=== PATIENT | male | born 1950 | race Caucasian/White ===

== ENCOUNTER → 2020-03-15 18:01 | Outpatient (CLI) | payer OTHER, SELFPAY ==
[2020-03-15 19:34] LABS: Basophils # 0.1 K/mm3 (0-0.2); Basophils % 0.7 % (0.1-2.0); Eosinophils # 0.3 K/mm3 (0.0-0.4); Eosinophils % 2.1 % (0.1-12.0); Hematocrit 42.7 % (42.0-52.0); Hemoglobin 15.4 g/dL (14.1-18.0); Lymphocytes # 3.5 K/mm3 (0.7-4.5); Mean Corpuscular HGB Conc 35.9 g/dL (31.8-35.4); Mean Corpuscular Hemoglobin 32.5 pg (27.0-31.2); Mean Corpuscular Volume 90.3 fl (80-94); Mean Platelet Volume 7.8 fl (7.4-10.4); Monocytes # 0.6 K/mm3 (0.1-1.0); Monocytes % 5.2 % (1.7-9.3); Neutrophils # 7.2 K/mm3 (1.8-7.8); Neutrophils % 61.9 % (37.0-80.0); Platelet Count 350 K/mm3 (142-424); Red Blood Count 4.73 M/mm3 (4.60-6.20); Red Cell Distribution Width 13.6 % (11.5-17.5); White Blood Count 11.6 K/mm3 (4.8-10.8)
[2020-03-15 20:28] LABS: Alanine Aminotransferase 21 U/L (12-78); Albumin Level 4.2 g/dl (3.5-5.0); Albumin/Globulin Ratio 1.5 (1.1-1.8); Alkaline Phosphatase 100 U/L (38-126); Anion Gap 13.4 mEq/L (5-15); Aspartate Amino Transferase 26 U/L (17-59); Bilirubin,Total 0.4 mg/dl (0.2-1.3); Blood Urea Nitrogen 20 mg/dl (9-20); Calcium 9.9 mg/dl (8.4-10.2); Carbon Dioxide 28 mmol/L (22.0-30.0); Chloride 102 mmol/L (98-107); Estimated Glomerular Filt Rate 67 ml/min (>60); GFR (African American) 81 ML/MIN (>60); Globulin 2.8 g/dL (1.3-3.2); Glucose 88 mg/dl (74-100); Potassium 4.4 mmoL/L (3.5-5.1); Sodium 139 mmol/L (136-145)
[2020-03-15 21:01] LABS: Prostate Specific Ag Screen 0.8 ng/ml (0.0-4.0); Thyroid Stimulating Hormone 1.17 uIU/mL (0.465-4.68)
[2020-03-15 21:18] LABS: Coronavirus 19 IgG Antibody Negative (Negative); Coronavirus 19 IgM Antibody Negative (Negative)
[2020-03-15 22:14] LABS: Hemoglobin A1C 5.4 % (4.0-6.0)
[2020-03-17 19:43] LABS: Vitamin B12 897 pg/mL (232-1245)
[2020-03-19 14:15] LABS: Testosterone, Total, LC/MS 322.1 ng/dL (264.0-916.0); Testosterone,Free 4.2 pg/mL (6.6-18.1)
== END ==
PROVIDERS: Visit Provider Family Medicine
DX: E11.9 Type 2 diabetes mellitus without complications (principal); E78.5 Hyperlipidemia, unspecified; I11.9 Hypertensive heart disease without heart failure
CPT/HCPCS: 80053; 82607; 83036; 84402; 84403; 84436; 84443; 85025; 86328; G0103

== ENCOUNTER → 2020-04-08 08:29 | Outpatient (CLI) | payer BC, SELFPAY ==
--- NOTE | 2020-04-08 08:42 | MR_ITS ---
PROCEDURE: MR LUMBAR SPINE WO CON CLINICAL INDICATION: lbp, numbness in bilat le LBP with sciatica down left leg. Hx lumbar surgery in 2001. COMPARISON: No exams were available for comparison TECHNIQUE: Standard multiplanar multiecho sequences are performed without contrast. 3-D MIP and myelographic images are also rendered and reviewed FINDINGS: There is normal alignment. The spinal cord ends at the T12-L1 level. Lumbar curvature convex left noted L1-L2: Mild facet and ligamentum hypertrophy with minimal bulging disc with mild bilateral foraminal narrowing. L2-L3: Mild facet ligamentum hypertrophy with mild bulging disc with mild bilateral foraminal narrowing L3-L4: Concentric bulging disc eccentric toward the right with facet and ligamentum hypertrophy with mild bilateral foraminal narrowing. Anterior osteophytes are present at this level. L4-5: Degenerative disc disease with bulging disc along with facet and ligamentum hypertrophy. There are bony hypertrophic changes at this level greater on the left with severe left lateral recess and foraminal narrowing and mild to moderate right foraminal narrowing. L5-S1: Degenerative disc disease with broad-based bulging disc with facet and ligamentum hypertrophy with mild right and severe left foraminal narrowing. IMPRESSION: 1. Abnormal MRI with multilevel degenerative changes and bulging disc along with facet and ligamentum hypertrophy with lateral recess and foraminal narrowing. Please see above for detailed description at each level. 2. Degenerative disc disease at L4-5 with bulging disc along with facet and ligamentum hypertrophy. There are bony hypertrophic changes at this level severe on the left with severe left lateral recess and foraminal narrowing and mild to moderate right foraminal narrowing Dictated by: Yuval Harden MD 04/09/2020 12:29 Yuval Harden MD in [place] 04/09/2020 12:29
--- NOTE | 2020-04-08 09:50 | XR_ITS ---
PROCEDURE: XR HIP RT 2-3V W/PELVIS CLINICAL INDICATION: erosive oa COMPARISON: MR MR LUMBAR SPINE WO CON from 04/08/2020 FINDINGS: There are mild osteoarthritic changes of the right hip. No fracture or dislocation. Along the lateral aspect of the ilium there is a mixed sclerotic and lucent area measuring approximately 5 cm. This could be a donor site from prior surgery. A lytic lesion is also consideration. Please correlate with patient's clinical history. IMPRESSION: Mild osteoarthritis of the right hip. Mixed sclerotic and lucent area along the right ilium laterally which could be due to a lytic lesion versus a donor site. Please correlate with clinical findings Dictated by: Yuval Harden MD 04/08/2020 16:48 Yuval Harden MD in [place] 04/08/2020 16:48
--- NOTE | 2020-04-08 09:54 | XR_ITS ---
PROCEDURE: XR HIP LT 2-3V W/PELVIS CLINICAL INDICATION: EROSIVE OA COMPARISON: No exams were available for comparison FINDINGS: There are mild osteoarthritic changes of the left hip. There is a small area of sclerosis along the left femoral neck at 5 mm and may be due to a bone island. There is degenerative disc disease at L4-5. No fracture or dislocation. No fracture or dislocation. IMPRESSION: Mild osteoarthritis Dictated by: Yuval Harden MD 04/08/2020 16:46 Yuval Harden MD in [place] 04/08/2020 16:46
== END ==
PROVIDERS: PCP Family Medicine; Visit Provider Family Medicine
DX: M54.5 Low back pain (principal); M15.4 Erosive (osteo)arthritis
CPT/HCPCS: 72148; 73502; 76376

== ENCOUNTER → 2020-08-05 11:17 | Outpatient (POV) | payer BC, SELFPAY ==
[2020-08-05 11:37] VITALS: BP 123/88; PULSE 87; RESP 20; TEMP 36.5; O2SAT 97; BMI 23.1
--- NOTE | 2020-08-05 13:05 | HMH.PMCON ---
Assessment and Plan (1) Degenerative joint disease (DJD) of lumbar spine Status: Chronic Category: Medical Code(s): M47.816 - Spondylosis without myelopathy or radiculopathy, lumbar region (2) Lumbar radiculopathy Status: Chronic Category: Medical Code(s): M54.16 - Radiculopathy, lumbar region (3) Degenerative joint disease of cervical spine Status: Chronic Category: Medical Code(s): M47.812 - Spondylosis without myelopathy or radiculopathy, cervical region (4) Cervical radiculopathy Status: Chronic Category: Medical Code(s): M54.12 - Radiculopathy, cervical region - Assessment and plan all Dx Assessment and Plan for all problems:: Patient is not interested in any type of therapy or treatment options at this time. He is here today only to establish care He has been instructed if he does decide at a later date that he would like to undergo any type of interventional therapies contact clinic. He is in agreement. The patient and I specifically discussed risk factors for COVID19. These risks include, but are not limited to age greater than 60, heart or lung disease, diabetes, immunosuppression, and travel. We also discussed NSAIDs may worsen COVID19 infection or symptoms. Patient should not use NSAIDs to treat COVID19 signs or symptoms. Patient was also informed that any type of corticosteroid of any form (oral or injection) will decrease the patient's immune system response and may increase the likelihood of COVID19 infection [address] symptoms[address]. Harden has reviewed this note and agrees with this plan of care. This note was dictated using voice recognition software and make contain errors or omissions. HPI - Data of Consult Patient: new to practice Consult date: 08/05/20 Requesting Physician: Neha Mesa APRN Primary Care Provider: Ladarius Marie MD - Consult Narrative Reason for consult: Neck and low back pain chronic History of present illness: Mr. Macedo is a 69 year old male presents today for consultation for chronic neck and low back pain. Patient says he is had surgical intervention to his cervical spine x3 along with cervical intervention to his lumbar spine as well with Dr. Patel in [facility]. He has also had injective therapy prior to surgery at [facility] in [facility]. Patient says that he continues with an inversion table therapy. He currently has pain in his neck and arms with numbness and tingling as well as low back with numbness and tingling in his feet and lower extremities. Patient says that the surgery to his cervical spine caused him to have nerve damage. He says that he has had severe issues with pain since having his last neck surgery in 2003. He is not ready to undergo injective therapy. He currently takes oral medications. He says he does not need a prescription for oral medications. He also says is not interested in interventional therapies. Patient says he is only here today to establish care. He does rate his pain a 7 out of 10. He also reports that he has had to left shoulder repair surgeries and one right shoulder repair surgery. He has tried physical therapy in the past along with a continued home stretching program. Ice and heat therapies do not work for him. CC: Neha Mesa APRN [facility] History I have reviewed the patient's past medical history: Yes Medical History: Reports:: Coronary Artery Disease, Gastroesophageal Reflux Disease(GERD), Hyperlipidemia, Hypertension Denies:: Cancer, Diabetes Mellitus Type 1, Diabetes Mellitus Type 2, MRSA *Have you ever received a pneumonia vaccine?: No *Have you received a flu vaccine this season?: Yes Other Medical History: Reports: Arthritis Other Surgeries: Yes: Other (cervical fusion, lumbar discectomy) Amputation: No Fractures: No - *Social History Smoking Status: Current every day smoker Tobacco Type: cigarettes # Packs/Day (cigarettes): 1 Alcohol Intake: never Alcohol Intake Frequency:: ho
== END ==
PROVIDERS: PCP Family Medicine; Visit Provider Clinical Nurse Specialist Family Health
DX: M47.896 Other spondylosis, lumbar region (principal); M47.892 Other spondylosis, cervical region; M54.16 Radiculopathy, lumbar region; M54.12 Radiculopathy, cervical region
CPT/HCPCS: 99202

== ENCOUNTER → 2021-08-22 15:04 | Outpatient (CLI) | payer BC, SELFPAY ==
[2021-08-22 15:28] LABS: Hemoglobin A1C 5.3 % (4.0-6.0)
== END ==
PROVIDERS: Visit Provider Family Medicine
DX: R73.9 Hyperglycemia, unspecified (principal)
CPT/HCPCS: 83036

== ENCOUNTER → 2021-09-20 16:00 | Outpatient (CLI) | payer BC, SELFPAY ==
[2021-09-20 15:08] LABS: Adenovirus,PCR Not Detected (NotDetected); Bordetella Pertussis Not Detected (NotDetected); Chlamydophila Pneumoniae, PCR Not Detected (NotDetected); Coronavirus 19, PCR Not Detected (NotDetected); Coronavirus 229E Not Detected (NotDetected); Coronavirus NL63 Not Detected (NotDetected); Coronavirus OC43 Not Detected (NotDetected); Coronovirus HKU1,PCR Not Detected (NotDetected); Human Metapneumovirus Not Detected (NotDetected); Influenza A, PCR Not Detected (NotDetected); Influenza AH1, 2009 Not Detected (NotDetected); Influenza AH1, PCR Not Detected (NotDetected); Influenza AH3,PCR Not Detected (NotDetected); Influenza B, PCR Not Detected (NotDetected); Parainfluenza 1, PCR Not Detected (NotDetected); Parainfluenza 2, PCR Not Detected (NotDetected); Parainfluenza 3, PCR Not Detected (NotDetected); Parainfluenza 4, PCR Not Detected (NotDetected); Respiratory Syncytial Virus Not Detected (NotDetected); Rhinovirus/Enterovirus Not Detected (NotDetected)
[2021-09-20 15:09] LABS: Mycoplasma Pneumoniae, PCR Not Detected (NotDetected)
== END ==
PROVIDERS: Visit Provider Family Medicine
DX: Z20.822 Contact with and (suspected) exposure to COVID-19 (principal); R05.9 Cough, unspecified
CPT/HCPCS: 87581; 87632; 87798; C9803; U0003; U0005

== ENCOUNTER → 2022-08-23 10:05 | Outpatient (POV) | payer BC, SELFPAY ==
[2022-08-23 10:39] VITALS: BP 151/97; PULSE 82; RESP 18; O2SAT 98; BMI 23.8
--- NOTE | 2022-08-23 11:10 | EXP.PAIN.OV ---
HPI Data of Consult Patient: new to practice Consult date: 08/23/22 Requesting Physician: Veda Linton APRN Primary Care Provider: Ladarius Marie MD Consult Narrative Reason for consult: Low back pain, neck pain, bilateral shoulder pain, leg pain History of present illness: Mr. Macedo is a 71 year old male who presents today as a new patient. He is a referral from Dr. Tyler Marie's office. Today he rates his pain a 6 out of 10. Patient states he has had pain in his back for approximately 20 years. Patient denies any specific trauma or injury. Patient states that he has had 3 different neck surgeries including a cervical fusion and a back laminectomy in the past. Patient also states he has had bilateral shoulder surgeries including rotator cuff repairs and that his left shoulder basically had to be rebuilt. Patient does state this is a aching, throbbing sensation that is worse with increased activity. Patient states he has tried [id number] Tylenol and ibuprofen however this made no additional improvement. Patient does use an ice pack at night and a heating pad in the morning to help give minimal improvement. Patient states [id number] creams have not done anything. Patient has had physical therapy in the past and states he continues to do light workouts on a daily basis including isometric exercises and walking. Patient does state that he continues to have decreased range of motion and decreased ability to perform activities of daily living due to his increasing pain. He does state that he even has numbness down his left thigh. Patient is currently prescribed [place] 10 mg twice a day from his primary care doctor. Patient denies any side effects from this medication. He states this medication does help take the edge off of his pain symptoms. His Ryder is [id number]. Its been reviewed and appropriate. CC: Veda Linton APRN [facility] Disclaimer: The information contained in this section may have been updated after the patient was seen, as this information can be updated by other users. Medical History (Updated 08/23/22 @ 11:13 by Veda Linton APRN) GERD (gastroesophageal reflux disease) HLD (hyperlipidemia) HTN (hypertension) Surgical History (Updated 08/23/22 @ 11:01 by Komal Claire RN) H/O neck surgery History of back surgery Hx of shoulder surgery Social History (Updated 08/23/22 @ 11:01 by Komal Claire RN) Smoking Status: Current every day smoker tobacco type: cigarettes packs per day: 1 alcohol intake: never substance use type: denies use current occupational status: retired Travel in the last 8 weeks: None household members: other housing: house caffeine: Yes Review of Systems Review of Systems Review of systems:: pertinent systems reviewed and negative unless documented below Review of systems (narrative): Review of Systems: General: No recent weight changes, no fever, no sleep disturbances Respiratory: No cough, no shortness of air, no recurring pulmonary infections Cardiovascular/peripheral vascular: No chest pain, no palpitations, no edema, no shortness of breath Gastrointestinal: No new onset incontinence, normal bowel movements reported Genitourinary: No new onset incontinence Musculoskeletal: Low back pain, shoulder pain, neck pain Psychiatric: [Normal mood/affect] Neurological: [Denies weakness in extremities], [denies balance issues] Meds Home Medications and Allergies Home Medications Medication Instructions Recorded Confirmed Type omeprazole 20 mg capsule,delayed 20 mg PO DAILY GERD #90 caps 05/16/22 08/23/22 Rx release cyclobenzaprine 10 mg tablet 10 mg PO TID PRN muscle spasm #60 06/15/22 08/23/22 Rx tabs hydrocodone 10 mg-acetaminophen 1 tab PO Q12H PRN pain #60 tabs 08/14/22 08/23/22 Rx 325 mg tablet budesonide-formoterol HFA 160 2 puff inhalation BID Breathing 08/23/22 08/23/22 History mcg-4.5 mcg/actuation aerosol problems inhale
== END ==
PROVIDERS: PCP Family Medicine; Visit Provider Nurse Practitioner Family
DX: M51.16 Intervertebral disc disorders with radiculopathy, lumbar region (principal); M47.26 Other spondylosis with radiculopathy, lumbar region; M50.10 Cervical disc disorder with radiculopathy, unspecified cervical region; M47.22 Other spondylosis with radiculopathy, cervical region; M25.511 Pain in right shoulder; M25.512 Pain in left shoulder
CPT/HCPCS: 99202; G0463

== ENCOUNTER 2022-09-15 12:54 | Day surgery (SDC) | payer BC, OTHER, SELFPAY ==
[2022-09-15 13:10] VITALS: BP 161/99; PULSE 85; RESP 20; O2SAT 98; BMI 24.4
[2022-09-15 13:13] VITALS: BP 185/99; PULSE 91; RESP 18; O2SAT 97
[2022-09-15 13:16] VITALS: BP 185/99; PULSE 91; RESP 18; O2SAT 98
[2022-09-15 13:30] VITALS: BP 154/99; PULSE 85; RESP 20
--- NOTE | 2022-09-15 13:37 | MR_ITS ---
FINAL REPORT CLINICAL HISTORY: LBP FINDINGS: Multiplanar MR imaging of the lumbar spine was performed without contrast. On the sagittal T2-weighted images, there is abnormal decreased signal throughout the lumbar discs. There is moderate loss of height at L3-4, L4-5 and L5-S1. The vertebral alignment is normal. T12-L1: There is no significant canal stenosis or neural foraminal narrowing. L1-2: Posterolateral disc protrusions are present with moderate left and mild right neural foraminal narrowing. L2-3: A mild diffuse disc bulge is present with mild to moderate bilateral neural foraminal narrowing. Posterolateral disc protrusions are present. L3-4: A moderate diffuse disc bulge is present with a right posterolateral disc protrusion. There is mild spinal compromise with moderate right and mild left neural foraminal narrowing. L4-5: A moderate diffuse disc bulge is present with bilateral facet hypertrophy. There is moderate spinal canal compromise and bilateral neural foraminal narrowing. L5-S1: A moderate diffuse disc bulge is present with endplate hypertrophy. There is moderate to high-grade right and high-grade left neural foraminal narrowing. IMPRESSION: Hypertrophic changes of degenerative disc disease most evident at L3-4 through L5-S1 with neural foraminal compromise most evident on the left at L5-S1. No acute bony abnormality. Reviewed, Interpreted and Dictated by Martell Mendoza MD Transcribed by Katelynn Rosario Authenticated and [facility]
--- NOTE | 2022-09-15 14:17 | P.PCN_ITS ---
Procedure Date: 09/15/22 Time: 14:18 Anesthesiologist:: Eusebio Harden MD Complications:: None Pre-procedure Diagnosis:: Degenerative disease of lumbar spine with lumbar ankle off the symptoms and lumbar spinal stenosis with neurogenic claudication symptoms. Postlaminectomy syndrome lumbar spine Post-procedure Diagnosis:: Same Indications for Procedure:: This patient is a pleasant 71-year-old white male who we have been treating for low back pain with lumbar radiculopathy symptoms and postlaminectomy syndrome lumbar spine. He has lumbar spinal stenosis with neurogenic claudication symptoms. He is scheduled for MRI today. We will do a lumbar epidural steroid injection with epidurogram to assess levels of stenosis and candidacy for minimally invasive lumbar decompression. Procedure Details:: Lumbar epidural steroid injection under fluoroscopy Informed consent was obtained the risk and benefits of the procedure explained to the patient. Patient was taken the procedure room. Back was prepped using ChloraPrep. The skin and subtenons tissues were anesthetized with lidocaine. A 17-gauge epidural needle was inserted and advanced into the L3-L4 interspace. After confirmation of needle placement in the epidural space dye was injected. We did see some spread throughout L3-L4 however no spread below this level. There was significant stenosis at L3-4 and L4-L5. After this we injected Depo- Medrol 80 mg plus lidocaine 1% 1 mL. The needle was removed. Patient tolerated the procedure well with no complications. Plan and Disposition:: Based on epidurogram the patient does have significant stenosis at L3-4 and L4- L5. I do believe he would benefit from minimally invasive lumbar decompression bilateral L3-4 and L4-L5. Also we have talked him about spinal cord stimulation in the future to help with his pain symptoms. We will see him back in 2 weeks. We will reevaluate his symptoms after this lumbar pleural steroid injection. We will reevaluate his MRI and plan on minimally invasive lumbar decompression bilateral L3-L4 and L4-L5.
== END 2022-09-15 13:30 | disposition home or self-care (01) ==
PROVIDERS: PCP Family Medicine; Visit Provider Nurse Practitioner Family
DX: M51.36 Other intervertebral disc degeneration, lumbar region (principal)
CPT/HCPCS: 62323; 72148; 76376; J1040; Q9966

== ENCOUNTER → 2022-09-28 14:04 | Outpatient (POV) | payer BC, SELFPAY ==
[2022-09-28 14:31] VITALS: BP 140/81; PULSE 101; RESP 18; O2SAT 99; BMI 24.8
--- NOTE | 2022-09-28 15:01 | EXP.PAIN.SOA ---
[facility] Pain Management SOAP Note Subjective:: Patient is a pleasant 72-year-old who presents today for follow-up of lumbar epidural steroid injection with epidurogram at L3-L4 and L4-L5 on 09/15/2022. We are currently treating the patient for degenerative disc disease of cervical and lumbar spine with cervical and lumbar radiculopathy symptoms, lumbar facet hypertrophy, multilevel ligamentum flavum hypertrophy, mild to moderate spinal canal compromise most evident at L3-L4 through L5-S1, low back pain, neck pain, bilateral shoulder pain. Today he states he has had at least 50% improvement following this injection. He rates his pain today a 3 out of 10. Patient denies any new trauma or injury. Patient denies any change to location or type of pain he experiences. Patient states he has had improvement in his numbness along his left leg and feels like he has been able to increase his activity with less pain. Patient does have a significant history with 3 different neck surgeries including a cervical fusion and laminectomy in the past. He has also had bilateral shoulder surgeries including rotator cuff repairs and does need a revision to his left shoulder however he is not wanting to proceed forward with this option. Patient does state his pain is an aching, throbbing sensation that is worse with increased activity. Patient states he cannot tolerate prolonged standing or walking due to the pain. Patient states his pain is much better at rest. Patient does use [id number]-gdcenuh Tylenol and ibuprofen as needed however this is not given significant relief. Patient does use an ice pack at night and a heating pad in the morning for temporary relief. Patient has had physical therapy in the past that did provide some improvement. Patient does currently do at home exercising and stretching including isometric exercises, walking, stretching/traction exercises that does provide additional relief. Patient is currently prescribed [place] 10 mg twice a day from his primary care doctor. Patient denies any side effects from this medication. Patient does state that he does feel like he continues to have some weakness in his legs. At our last visit I did discuss with him that he may be a potential candidate for the minimally invasive lumbar decompression and he states he is interested in proceeding forward with this plan of care. His Ryder is [phone]. Its been reviewed and appropriate. Review of Systems: General: No recent weight changes, no fever, no sleep disturbances Respiratory: No cough, no shortness of air, no recurring pulmonary infections Cardiovascular/peripheral vascular: No chest pain, no palpitations, no edema, no shortness of breath Gastrointestinal: No new onset incontinence, normal bowel movements reported Genitourinary: No new onset incontinence Musculoskeletal: Low back pain, leg pain Psychiatric: [Normal mood/affect] Neurological: [Denies weakness in extremities], [denies balance issues] Objective:: Physical Exam: General: Alert and oriented x3, no acute distress, pleasant and cooperative Lungs: Respirations even and unlabored, symmetrical chest expansion Eyes: PERRL Musculoskeletal: Flexion and extension of lumbar [spine] somewhat guarded secondary to pain, [antalgic gait noted] Neurological: Speech clear, no gross sensory deficit FINDINGS: Multiplanar MR imaging of the lumbar spine was performed without contrast. On the sagittal T2-weighted images, there is abnormal decreased signal throughout the lumbar discs.? There is moderate loss of height at L3-4, L4-5 and L5-S1.? The vertebral alignment is normal.? ? T12-L1:? There is no significant canal stenosis or neural foraminal narrowing.? L1-2:? Posterolateral disc protrusions are present with moderate left and mild right neural foraminal narrowing.? L2-3:? A mild diffuse disc bulge is present with mild to moderate bilateral neural foraminal narrowing.? Posterolateral disc protrusions are present.? L3-4: A mo
== END ==
PROVIDERS: PCP Family Medicine; Visit Provider Nurse Practitioner Family
DX: M51.16 Intervertebral disc disorders with radiculopathy, lumbar region (principal); M50.10 Cervical disc disorder with radiculopathy, unspecified cervical region; M47.26 Other spondylosis with radiculopathy, lumbar region; M48.062 Spinal stenosis, lumbar region with neurogenic claudication; M25.511 Pain in right shoulder; M25.512 Pain in left shoulder; F17.210 Nicotine dependence, cigarettes, uncomplicated
CPT/HCPCS: 99212; G0463

== ENCOUNTER → 2022-11-10 14:13 | Outpatient (CLI) | payer BC, SELFPAY ==
[2022-11-10 15:47] LABS: Basophils # 0.1 K/mm3 (0-0.2); Basophils % 0.6 % (0.1-2.0); Eosinophils # 0.2 K/mm3 (0.0-0.4); Eosinophils % 2.4 % (0.1-12.0); Hematocrit 46.8 % (42.0-52.0); Hemoglobin 14.8 g/dL (14.1-18.0); Lymphocytes # 3.1 K/mm3 (0.7-4.5); Mean Corpuscular HGB Conc 31.7 g/dL (31.8-35.4); Mean Corpuscular Hemoglobin 30.5 pg (27.0-31.2); Mean Corpuscular Volume 96.1 fl (80-94); Mean Platelet Volume 8.1 fl (7.4-10.4); Monocytes # 0.6 K/mm3 (0.1-1.0); Monocytes % 6.3 % (1.7-9.3); Neutrophils # 5.7 K/mm3 (1.8-7.8); Neutrophils % 58.6 % (37.0-80.0); Platelet Count 373 K/mm3 (142-424); Red Blood Count 4.86 M/mm3 (4.60-6.20); Red Cell Distribution Width 13.4 % (11.5-17.5); White Blood Count 9.7 K/mm3 (4.8-10.8)
[2022-11-10 15:56] LABS: Alanine Aminotransferase 20 U/L (12-78); Albumin/Globulin Ratio 1.8 (1.1-1.8); Alkaline Phosphatase 76 U/L (38-126); Anion Gap 8.5 mEq/L (5-15); Aspartate Amino Transferase 29 U/L (17-59); Bilirubin,Total 0.4 mg/dl (0.2-1.3); Blood Urea Nitrogen 21 mg/dl (9-20); Calcium 8.7 mg/dl (8.4-10.2); Carbon Dioxide 27 mmol/L (22.0-30.0); Chloride 108 mmol/L (98-107); Chol/HDL Ratio 4.6 (1-3.5); Cholesterol 137 mg/dl (140-200); Estimated Glomerular Filt Rate 50 ml/min (>60); GFR (African American) 61 ML/MIN (>60); Globulin 2.2 g/dL (1.3-3.2); Glucose 100 mg/dl (74-100); HDL Cholesterol 30 mg/dl (40-60); Potassium 4.5 mmoL/L (3.5-5.1); Sodium 139 mmol/L (136-145); Total Protein,Serum 6.2 g/dl (6.3-8.2); Triglycerides 186 mg/dl (30-150); VLDL Cholesterol 37 mg/dL (0-40)
[2022-11-10 16:26] LABS: Prostate Specific Ag Screen 1.3 ng/ml (0.0-4.0)
== END ==
PROVIDERS: PCP Family Medicine; Visit Provider Family Medicine
DX: I25.10 Atherosclerotic heart disease of native coronary artery without angina pectoris (principal); I10 Essential (primary) hypertension; E78.5 Hyperlipidemia, unspecified; I65.29 Occlusion and stenosis of unspecified carotid artery; Z12.5 Encounter for screening for malignant neoplasm of prostate
CPT/HCPCS: 80053; 80061; 85025; G0103

== ENCOUNTER → 2023-02-09 10:40 | Outpatient (CLI) | payer BC, SELFPAY ==
[2023-02-09 18:56] LABS: Alanine Aminotransferase 25 U/L (12-78); Albumin Level 4.2 g/dl (3.5-5.0); Albumin/Globulin Ratio 1.6 (1.1-1.8); Alkaline Phosphatase 112 U/L (38-126); Anion Gap 14.8 mEq/L (5-15); Aspartate Amino Transferase 28 U/L (17-59); Bilirubin,Total 0.4 mg/dl (0.2-1.3); Blood Urea Nitrogen 24 mg/dl (9-20); Calcium 9.5 mg/dl (8.4-10.2); Carbon Dioxide 25 mmol/L (22.0-30.0); Chloride 104 mmol/L (98-107); Estimated Glomerular Filt Rate 46 ml/min (>60); GFR (African American) 56 ML/MIN (>60); Globulin 2.7 g/dL (1.3-3.2); Glucose 67 mg/dl (74-100); Potassium 4.8 mmoL/L (3.5-5.1); Sodium 139 mmol/L (136-145); Total Protein,Serum 6.9 g/dl (6.3-8.2)
== END ==
PROVIDERS: PCP Family Medicine; Visit Provider Family Medicine
DX: G89.21 Chronic pain due to trauma (principal); M54.2 Cervicalgia; M54.50 Low back pain, unspecified; Z76.0 Encounter for issue of repeat prescription; M25.511 Pain in right shoulder
CPT/HCPCS: 80053

== ENCOUNTER → 2023-03-12 23:16 | Outpatient (CLI) | payer BC, SELFPAY ==
[2023-03-12 18:22] LABS: Alanine Aminotransferase 25 U/L (12-78); Albumin Level 4.3 g/dl (3.5-5.0); Albumin/Globulin Ratio 1.5 (1.1-1.8); Alkaline Phosphatase 99 U/L (38-126); Aspartate Amino Transferase 29 U/L (17-59); Bilirubin,Total 0.4 mg/dl (0.2-1.3); Blood Urea Nitrogen 28 mg/dl (9-20); Calcium 9.6 mg/dl (8.4-10.2); Carbon Dioxide 28 mmol/L (22.0-30.0); Chloride 106 mmol/L (98-107); Estimated Glomerular Filt Rate 40 ml/min (>60); GFR (African American) 48 ML/MIN (>60); Globulin 2.8 g/dL (1.3-3.2); Glucose 60 mg/dl (74-100); Sodium 145 mmol/L (136-145); Total Protein,Serum 7.1 g/dl (6.3-8.2)
== END ==
PROVIDERS: PCP Family Medicine; Visit Provider Family Medicine
DX: I10 Essential (primary) hypertension (principal)
CPT/HCPCS: 80053; 82043

== ENCOUNTER → 2023-05-31 10:42 | Outpatient (POV) | payer BC, SELFPAY ==
--- NOTE | 2023-05-31 11:07 | EXP.PAIN.SOA ---
[facility] Pain Management SOAP Note Subjective:: Patient is a pleasant 72-year-old who presents today for follow-up. We are currently treating the patient for degenerative disc disease of cervical and lumbar spine with cervical and lumbar radiculopathy symptoms, lumbar facet hypertrophy, multilevel ligamentum flavum hypertrophy, mild to moderate spinal canal compromise most evident at L3-L4 through L5-S1, low back pain, neck pain, bilateral shoulder pain. Today he rates his pain today a 3 out of 10. He denies any new injuries or trauma from our last visit. Patient was last in our office at the end of September of this year when we had planned on doing a lumbar decompression. At that time the patient had wanted to see a neurosurgeon and put this procedure on hold. Today he states he did go see Fawad Patrick and that they were recommending a lumbar fusion. Patient does state that at this time he does not want to go this route. He states that he does know he has significant narrowing from L3-S1 and would like to be scheduled for the lumbar decompression. He is prescribed [place] 5 mg 4 times a day from his primary care provider. His Ryder has been reviewed and is appropriate. Review of Systems: General: No recent weight changes, no fever, no sleep disturbances Respiratory: No cough, no shortness of air, no recurring pulmonary infections Cardiovascular/peripheral vascular: No chest pain, no palpitations, no edema, no shortness of breath Gastrointestinal: No new onset incontinence, normal bowel movements reported Genitourinary: No new onset incontinence Musculoskeletal: Low back pain, bilateral leg pain Psychiatric: [Normal mood/affect] Neurological: [Denies weakness in extremities], [denies balance issues] Objective:: Physical Exam: General: Alert and oriented x3, no acute distress, pleasant and cooperative Lungs: Respirations even and unlabored, symmetrical chest expansion Eyes: PERRL Musculoskeletal: Flexion and extension of lumbar [spine] somewhat guarded secondary to pain, [antalgic gait noted] Neurological: Speech clear, no gross sensory deficit Assessment:: Degenerative disc disease of cervical and lumbar spine with cervical and lumbar radiculopathy symptoms, lumbar facet arthropathy, multilevel ligamentum flavum hypertrophy, mild to moderate spinal canal compromise most evident at L3-L4 and L5-S1, low back pain, neck pain, bilateral shoulder pain Plan:: Patient is experiencing worsening pain in his low back with radiating symptoms into his lower extremities. Patient does have a positive shopping cart sign and symptoms appropriate for the spinal stenosis with neurogenic claudication symptoms. Patient has had a diagnostic lumbar epidural steroid injection with epidurogram back in September of this year that did show significant narrowing from L3-L4 and L4-L5. I have discussed the risk and benefits of the lumbar decompression and the patient would like to proceed forward with this option. He is not on any blood thinners. Patient does state he would like to focus more on the L4-L5 and L5-S1 due to the worsening stenosis at those 2 levels more prominent than the L3-L4 level. I have discussed with the patient that I will speak to Dr. Harden on this. Patient is requesting that we do 3 levels if possible. We will submit to insurance for the minimally invasive lumbar decompression L4-L5 and L5-S1. Patient has been instructed to contact the clinic with any concerns before the next appointment. Dr. Harden has reviewed this note and agrees with this plan of care. This note was dictated using voice recognition software and make contain errors or omissions. [facility] Disclaimer: The information contained in this section may have been updated after the patient was seen, as this information can be updated by other users. Medical History GERD (gastroesophageal reflux disease) HLD (hyperlipidemia) HTN (hypertension
[2023-05-31 12:31] VITALS: BP 149/98; PULSE 81; RESP 18; O2SAT 97; BMI 24.7
== END ==
PROVIDERS: PCP Family Medicine; Visit Provider Nurse Practitioner Family
DX: M50.10 Cervical disc disorder with radiculopathy, unspecified cervical region (principal); M51.16 Intervertebral disc disorders with radiculopathy, lumbar region; M47.26 Other spondylosis with radiculopathy, lumbar region; M25.511 Pain in right shoulder; M25.512 Pain in left shoulder; M48.061 Spinal stenosis, lumbar region without neurogenic claudication
CPT/HCPCS: 99212; G0463

== ENCOUNTER 2023-12-07 18:00 | Outpatient (CLI) | payer BC, SELFPAY ==
[2023-12-07 18:35] LABS: Basophils # 0.1 K/mm3 (0-0.2); Basophils % 0.6 % (0.1-2.0); Eosinophils # 0.2 K/mm3 (0.0-0.4); Eosinophils % 1.6 % (0.1-12.0); Hematocrit 48.4 % (42.0-52.0); Hemoglobin 15.3 g/dL (14.1-18.0); Lymphocytes # 2.6 K/mm3 (0.7-4.5); Lymphocytes % 23.7 % (10-50); Mean Corpuscular HGB Conc 31.7 g/dL (31.8-35.4); Mean Corpuscular Hemoglobin 30.4 pg (27.0-31.2); Mean Corpuscular Volume 95.7 fl (80-94); Mean Platelet Volume 8.2 fl (7.4-10.4); Monocytes # 0.9 K/mm3 (0.1-1.0); Monocytes % 8.3 % (1.7-9.3); Neutrophils # 7.2 K/mm3 (1.8-7.8); Neutrophils % 65.8 % (37.0-80.0); Platelet Count 407 K/mm3 (142-424); Red Blood Count 5.05 M/mm3 (4.60-6.20); Red Cell Distribution Width 13.9 % (11.5-17.5)
[2023-12-07 18:51] LABS: Alanine Aminotransferase 31 U/L (12-78); Albumin Level 4.2 g/dl (3.5-5.0); Albumin/Globulin Ratio 1.7 (1.1-1.8); Alkaline Phosphatase 108 U/L (38-126); Anion Gap 11.2 mEq/L (5-15); Aspartate Amino Transferase 38 U/L (17-59); Bilirubin,Total 0.5 mg/dl (0.2-1.3); Blood Urea Nitrogen 34 mg/dl (9-20); Calcium 9.8 mg/dl (8.4-10.2); Carbon Dioxide 27 mmol/L (22.0-30.0); Chloride 105 mmol/L (98-107); Chol/HDL Ratio 2.8 (1-3.5); Cholesterol 128 mg/dl (140-200); Estimated Glomerular Filt Rate 35 ml/min (>60); GFR (African American) 42 ML/MIN (>60); Globulin 2.5 g/dL (1.3-3.2); Glucose 91 mg/dl (74-100); HDL Cholesterol 45 mg/dl (40-60); Potassium 5.2 mmoL/L (3.5-5.1); Sodium 138 mmol/L (136-145); Total Protein,Serum 6.7 g/dl (6.3-8.2); Triglycerides 87 mg/dl (30-150); VLDL Cholesterol 17 mg/dL (0-40)
[2023-12-07 19:01] LABS: Direct LDL Cholesterol 74.61 mg/dL (100-129)
[2023-12-07 19:20] LABS: Prostate Specific Ag Screen 1.3 ng/ml (0.0-4.0)
== END 2023-12-07 23:59 | disposition home or self-care (01) ==
LOC: LAB.DROPOF 12-08 09:22
PROVIDERS: PCP Family Medicine; Visit Provider Family Medicine
DX: N18.31 Chronic kidney disease, stage 3a (principal)
CPT/HCPCS: 80053; 80061; 85025; G0103

== ENCOUNTER 2024-02-06 11:17 | Outpatient (CLI) | payer BC, SELFPAY ==
[2024-02-06 20:59] LABS: Chloride 108 mmol/L (98-107); Potassium 4.9 mmoL/L (3.5-5.1); Sodium 139 mmol/L (136-145)
[2024-02-06 21:02] LABS: Alanine Aminotransferase 23 U/L (12-78); Albumin Level 3.9 g/dl (3.5-5.0); Albumin/Globulin Ratio 1.4 (1.1-1.8); Alkaline Phosphatase 96 U/L (38-126); Anion Gap 9.9 mEq/L (5-15); Aspartate Amino Transferase 26 U/L (17-59); Bilirubin,Total 0.4 mg/dl (0.2-1.3); Blood Urea Nitrogen 23 mg/dl (9-20); Carbon Dioxide 26 mmol/L (22.0-30.0); Estimated Glomerular Filt Rate 54 ml/min (>60); GFR (African American) 66 ML/MIN (>60); Globulin 2.8 g/dL (1.3-3.2); Total Protein,Serum 6.7 g/dl (6.3-8.2)
[2024-02-06 21:03] LABS: Calcium 9.7 mg/dl (8.4-10.2); Glucose 90 mg/dl (74-100)
== END 2024-02-06 23:59 | disposition home or self-care (01) ==
LOC: LAB.DROPOF 02-07 11:17
PROVIDERS: PCP Family Medicine; Visit Provider Family Medicine
DX: N18.31 Chronic kidney disease, stage 3a (principal)
CPT/HCPCS: 80053

== ENCOUNTER 2024-05-05 10:17 | Outpatient (CLI) | payer BC, SELFPAY ==
[2024-05-07 05:11] LABS: HBsAg Screen Negative (Negative); HCV Ab Non Reactive (Non Reactive); Hep A Ab, IGM Negative (Negative); Hep B Core Ab, IgM Negative (Negative)
== END 2024-05-05 23:59 | disposition home or self-care (01) ==
LOC: LAB.DROPOF 05-06 10:17
PROVIDERS: PCP Family Medicine; Visit Provider Family Medicine
DX: G89.21 Chronic pain due to trauma (principal)
CPT/HCPCS: 80074

== ENCOUNTER 2024-06-04 14:08 | Outpatient (CLI) | payer BC, SELFPAY ==
[2024-06-04 18:37] LABS: Albumin Level 4.2 g/dl (3.5-5.0); Chloride 104 mmol/L (98-107); Sodium 140 mmol/L (136-145)
[2024-06-04 18:38] LABS: Potassium 4.8 mmoL/L (3.5-5.1)
[2024-06-04 18:40] LABS: Alanine Aminotransferase 26 U/L (12-78); Albumin/Globulin Ratio 1.7 (1.1-1.8); Anion Gap 13.8 mEq/L (5-15); Aspartate Amino Transferase 24 U/L (17-59); Bilirubin,Total 0.6 mg/dl (0.2-1.3); Blood Urea Nitrogen 22 mg/dl (9-20); Carbon Dioxide 27 mmol/L (22.0-30.0); Estimated Glomerular Filt Rate 60 ml/min (>60); GFR (African American) 72 ML/MIN (>60); Globulin 2.5 g/dL (1.3-3.2); Total Protein,Serum 6.7 g/dl (6.3-8.2)
[2024-06-04 18:41] LABS: Alkaline Phosphatase 85 U/L (38-126); Calcium 9.5 mg/dl (8.4-10.2); Glucose 96 mg/dl (74-100)
== END 2024-06-04 23:59 | disposition home or self-care (01) ==
LOC: LAB.DROPOF 06-05 14:09
PROVIDERS: PCP Family Medicine; Visit Provider Family Medicine
DX: N18.31 Chronic kidney disease, stage 3a (principal)
CPT/HCPCS: 80053